=== PATIENT | female | born 1940 | race Caucasian/White ===

== ENCOUNTER 2021-05-16 17:48 | Emergency (ER) | payer MEDICARE, BC, SELFPAY ==
[2021-05-16 18:01] VITALS: BP 112/57; PULSE 77; RESP 17; TEMP 36.8; O2SAT 98
--- NOTE | 2021-05-16 18:08 | PC.NURSE ---
Per family, pt is a DNR.
--- NOTE | 2021-05-16 19:17 | PC.NURSE ---
supercharge repair supervisor on the phone requesting [facility].
--- NOTE | 2021-05-16 19:38 | PC.NURSE ---
Rona hood RN will be sending Sudha SOLER to the facility to do an admission on this pt.
[2021-05-16 20:19] VITALS: BP 141/57; PULSE 92; RESP 26; O2SAT 99
--- NOTE | 2021-05-16 20:59 | ED.GENADULT ---
HPI - General Adult General Chief complaint: Unspecified Stated complaint: Unresponsive Time Seen by Provider: 05/16/21 18:32 Source: family (Daughter and granddaughter) and other ([facility]) Mode of arrival: EMS Limitations: clinical condition History of Present Illness HPI narrative: Per family patient was diagnosed with intracranial bleed after head injury on 05-12-21. Patient was having trouble getting out of bed so her attempted to help her and she fell onto the floor. Patient was then taken distally when diagnosed with intracranial bleed. Patient was having some dysphagia but was still alert and was supposed to have rehab over the next 2 to 3 weeks at the facility. [facility] reported to the family that the patient was being combative last night attempting to remove her medical devices so she was given 0.5 mg of Xanax. Family states that 6 AM this morning she was found unresponsive. Patient has not been speaking or interacting to any stimuli. Family states patient was a DNR and she does not want any interventions or life-saving measures. They stated the patient would want to go home and passed on her own.. Related Data Allergies Allergy/AdvReac Type Severity Reaction Status Date / Time No Known Allergies Allergy Unverified 01/04/18 09:11 Review of Systems Review of Systems: CONSTITUTIONAL: Denies fever, chills, or sweats. RESPIRATION: Reports snoring breathing NEUROLOGIC: Reports neurological deficit altered mental status [facility] Past Medical History Medical History (Updated 05/16/21 @ 21:48 by Gustavo Garduno PA-C) Coronary artery disease Depression Hyperlipidemia Hypertension Hypothyroidism Family History Family History (Updated 05/16/21 @ 16:06 by Kris Fernando RN) Father Acute myocardial infarction Hypertension Mother Acute myocardial infarction Hypertension Social History Social History Smoking status: Never smoker Exam Narrative: GENERAL: laying in bed. Not moving. pale. HEAD: Normocephalic, atraumatic. EYES: Pupils are equal but are not reactive to light. Not dilated or pinpoint. EOM not intact. CHEST: Snoring respirations. HEART: Irregular rhythm. SKIN: Warm, dry, no rash. NEURO: Not alert. Does not respond to painful stimuli. PSYCH: Normal mood and affect. Course Vital Signs Vital signs: Vital Signs Temperature 98.2 F 05/16/21 18:01 Pulse Rate 77 05/16/21 18:01 Respiratory Rate 17 05/16/21 18:01 Blood Pressure 112/57 L 05/16/21 18:01 Pulse Oximetry 98 05/16/21 18:01 Temperature 98.2 F 05/16/21 18:01 Pulse Rate 89 05/16/21 21:33 Respiratory Rate 24 H 05/16/21 21:33 Blood Pressure 125/58 L 05/16/21 21:33 Pulse Oximetry 99 05/16/21 21:33 Medical Decision Making MDM Narrative Medical decision making narrative: Family has agreed that patient would want hospice- comfort measures and would like to go home. To forego further interventions. Goal of care is to get patient home and to make her comfortable as she transitions to end of life. [facility] hospice nurse Yanet has evaluated patient and agrees that she is in transition to end of life. Goals of comfort care have been discussed and agreed upon by family. Goal is to allow patient to go home tonight where yogi will be present to provide medications and support to family and patient. They are working on a bed for home. It will either be delivered tonight or tomorrow. Family has an acceptable set up and bed at home for patient and yogi says it is acceptable. EMS called to transfer the patient to home. At this time EMS pickup is at 11pm.Patient neurological status has not changed. Her blood pressures have increased 112/57 and 125/58. No other symptoms at this time. Vital Signs Vital Signs: Vital Signs Temperature 98.2 F 05/16/21 18:01 Pulse Rate 77 05/16/21 18:01 Respiratory Rate 17 05/16/21 18:01 Blood Pressure 112/57 L 05/16/21 18:01 Pulse Oximetry 98 09
[2021-05-16 21:33] VITALS: BP 125/58; PULSE 89; RESP 24; O2SAT 99
--- NOTE | 2021-05-16 21:36 | PC.NURSE ---
called [facility] to request transport. ETA [id number]
[2021-05-16 22:09] VITALS: BP 129/56; PULSE 76; RESP 19; O2SAT 100
--- NOTE | 2021-05-16 22:59 | PC.NURSE ---
called for ETA update. ETA [id number]
--- NOTE | 2021-05-16 23:37 | PC.NURSE ---
[facility] here
== END 2021-05-16 23:56 | disposition hospice, home (50) ==
PROVIDERS: Emergency Provider Emergency Medicine; PCP Internal Medicine
DX: R40.20 Unspecified coma (principal); S06.309A Unspecified focal traumatic brain injury with loss of consciousness of unspecified duration, initial encounter; I25.10 Atherosclerotic heart disease of native coronary artery without angina pectoris; E78.5 Hyperlipidemia, unspecified; I10 Essential (primary) hypertension; E03.9 Hypothyroidism, unspecified; Z66 Do not resuscitate; X58.XXXA Exposure to other specified factors, initial encounter
CPT/HCPCS: 99283